=== PATIENT | male | born 1980 | race Caucasian/White ===

== ENCOUNTER 2022-07-26 06:18 | Day surgery (SDC) | payer OTHER, MEDICAID ==
[2022-07-26] MEDS ORDERED: Propofol 200 MG/20 ML SDV ONE (07:30)
[2022-07-26] MEDS ORDERED: Lactated Ringers 1,000 ML IV SCH (07:30)
[2022-07-26] MEDS ORDERED: Midazolam 1 MG/ML 2 ML SDV ONE (07:30)
[2022-07-26] MEDS ORDERED: fentaNYL 50 MCG/ML SDV ONE (07:30)
== END 2022-07-26 09:55 | disposition home or self-care (01) ==
LOC: JP.SDS 06:18
PROVIDERS: ATTEND Family Medicine
DX: D12.0 Benign neoplasm of cecum (principal); K62.1 Rectal polyp; K75.81 Nonalcoholic steatohepatitis (NASH); E78.5 Hyperlipidemia, unspecified; J45.909 Unspecified asthma, uncomplicated; F90.9 Attention-deficit hyperactivity disorder, unspecified type; G47.33 Obstructive sleep apnea (adult) (pediatric); E66.9 Obesity, unspecified; Z88.0 Allergy status to penicillin; Z68.35 Body mass index [BMI] 35.0-35.9, adult
CPT/HCPCS: 45380; J2250; J2704; J3010; J7120